=== PATIENT | male | born 1970 | race Caucasian/White ===

== ENCOUNTER 2016-09-13 12:15 | Emergency (ER) | payer BC ==
[~2016-09-13] VITALS: Ht 177.8 cm; Wt 90.9 kg
[2016-09-13] MEDS ORDERED: VALIUM5 MG PO (13:53)
[2016-09-13] MEDS ORDERED: MOTRIN600 MG PO (13:53)
[2016-09-13] MEDS ORDERED: PERCOCET 5/31 TABLET PO (13:53)
[2016-09-13 14:32] VITALS: BP 108/74
== END 2016-09-13 14:34 | disposition home or self-care (01) ==
LOC: EME 12:15
DX: M54.16 Radiculopathy, lumbar region (principal); Z87.891 Personal history of nicotine dependence; Z98.890 Other specified postprocedural states
CPT/HCPCS: 99281; 99283; J1100; J2270